=== PATIENT | female | born 1950 | race Caucasian/White ===

== ENCOUNTER 2023-06-16 09:00 | Outpatient (RCR) | payer MEDICARE, SELFPAY ==
--- NOTE | 2023-04-01 12:50 | PT.OPEX ---
PT [place] [facility] PT [facility] Outpatient Eval Start: 04/01/23 07:51 Freq: Status: Active Protocol: Document 04/01/23 07:52 ENM (Rec: 04/01/23 12:00 ENM [id number]) E-signed By Nola Puri DPT Physical Therapy Outpatient Evaluation Insurance Information Recert Due Date 06/24/23 Insurance Name Medicare B,[employer] Medical Diagnosis right ankle sprain sprain of unspecified ligament right ankle, initial encounter Treating Diagnosis right ankle pain, decreased ankle plantar flexion strength , decreased ankle inversion strength, impaired balance, ankle swelling Referring MD Wall Subjective Subjective Patient presents to PT for evaluation of right ankle sprain. She reports that she has had a swollen right ankle for months that has not gone away. She has tried icing, aleve and heat which doesn't seem to improve her symptoms. She states that she didn't do anything to injure it that she can think of. It hurts all the time but it doesn't stop her from doing anything. Hasn' t had any imaging of it. With doing the steps that can be more irritating. Walking is not as painful as just sitting towards the end of her day. Denies any numbness but can sometimes feel a bruised burning feeling. Denies any redness of the ankle or leg. Pain is in the front of the ankle and then towards medial malleoli. PMHx: R knee replacement Pain Comments at its worse: constant medium pain easing: none aggravating: sitting, standing more, steps Current Work Status Retired Objective Other/Pertinent Objective ROM: AROM DF L 7 deg R 7 deg in longsitting knee to wall- big toe to wall 7 inch on L, R 4.5 inch from wall PF L 58 R 59 + for anterior ankle pain when performing knee ROM L 126 knee flexion R 108 knee flexion strength: DF 5/5 B PF L 11 raises R 6 + for pain INV + for discomfort on R 4/5 L 5/5 , also painful with combination PF INV and DF INV EV 4+/5 B knee extensors 4/5 B hip abductors L glute weakness noted with SLS palpation/joint mobility posterior glide of talus pain free and hypomobile B + for pain palpating below medial malleoli and posterior tib tendon swelling/observation: figure 8 L 52.1 cm R 52.5 cm malleoli L 25.3 R 25.9 cm visible swelling along right bilateral malleoli gait/balance: SLS L able to hold 9-10s no difficulty R able to hold 2-3s with pain special tests: Arch testing 1 fingertip below the arch B, no excessive calcaneal eversion anterior drawer - for pain or hypermobility talar tilt + for slight discomfort on R side with eversion, no significant hypermobility Functional Test Performed & Score FAAM ADL: 60/84 71% Assessment Assessment/Impression Patient is a 72 year old female presenting with right ankle pain and swelling that has been present for months. They notice the most discomfort when sitting at the end of their day, going up the stairs and walking longer distances. They have tried aleve, icing and heat for symptoms but have had no relief to date. Upon assessment patients concordant pains brought on with heel raises, resisted ankle INV, end range plantar flexion and palpation of right inferior medial malloeli and posterior tibialis. Special testing - for increased laxity with talar tilt and anterior drawer, slight pain with eversion of calcaneus. SLS is poor on the right side. Swelling is localized to bilateral right malleoli measured at 0.5 cm different compared to contralateral side . Symptoms consistent with posterior tibial tendinopathy. Gladys would greatly benefit from skilled PT to address impairments stated above in order to perform all functional mobility and recreational activities without significant discomfort or difficulty for return to PLOF. Primary Functional Limitations stairs, walking more, sitting at the end of her day Plan of Care Rehabilitation Potential Good Physical Therapy Goals In 6-8 visits: 1. Patient will be IND with HEP and self management of symptoms 2. Patient will be able to rest at the end of her day with 2/10 or less ankle pain in order to comfortably sit for evening activities 3. Patient will be able to perform atleast 10 R single leg heel raises without pain for improved ability to perform stairs 4. Patient will be able to hold R SLS for atleast 5s without pain to demonstrate improvements in ankle stability and balance 5. Patient will participate in hiking with her daughters without increase in ankle swelling in order to progress toward prior level of activity Treatment Plan/Direct Interventions Gait Training,Ice/Cold/ Vasopneumatic,Joint Mobilization,Manual Therapy, Neuromuscular Re-ed,Self-Care/ Home Management,Therapeutic Activities,Therapeutic Exercises Frequency/Duration 1x for 7 weeks, as needed for 2-3 visits Patient Will Be Discharged From Therapy Completion of LTG(s), Independent w/HEP Evaluation Billing Untimed Code Treatment Minutes 33 Complexity Low Certification Information Initial Certification Date 04/01/23 Ending Certification Date 06/24/23 Provider Signature Shows Agreement With POC & Medical Necessity Physician Signature & Date Requested Please Sign/Date Here Physician Comment/Change : Physician NPI Number #
== END 2023-08-04 14:32 | disposition home or self-care (01) ==
PROVIDERS: PCP Internal Medicine; Visit Provider Internal Medicine
DX: S93.401D Sprain of unspecified ligament of right ankle, subsequent encounter (principal); Z51.89 Encounter for other specified aftercare
CPT/HCPCS: 97110; 97112; 97140; 97161

== ENCOUNTER 2023-08-31 13:45 | Outpatient (CLI) | payer MEDICARE, SELFPAY ==
--- NOTE | 2023-08-31 14:00 | CRLHL7_ITS ---
For Patients: As a result of the Century Cures Act, medical imaging exams and procedure reports are released immediately into your electronic medical record. You may view this report before your referring provider. If you have questions, please contact your health care provider. BILATERAL SCREENING MAMMOGRAM WITH COMPUTER-AIDED DETECTION TECHNIQUE: CC and MLO views were obtained. These mammographic images have been obtained using full-field digital technique. These mammographic images were interpreted with the benefit of computer-aided detection. COMPARISON FILM: 02/09/21, 08/28/18, 11/01/16. FINDINGS: There are scattered areas of fibroglandular density. IMPRESSION: There is no radiographic evidence for malignancy. ASSESSMENT: BI-RADS Category 1: Negative RECOMMENDATION: Routine screening mammogram in 1 year. A lay language report of this examination will be provided to the patient. MARCELO GONZALEZ M.D. Diagnostic Radiologist [email or web address] Transcribed: 09/01/2023, 6:[address]/Dictated by: Marcelo Gonzalez MD @ 09/01/2023 1:01:00 PM (Electronically Signed)
--- NOTE | 2023-08-31 14:30 | CRLHL7_ITS ---
For Patients: As a result of the Century Cures Act, medical imaging exams and procedure reports are released immediately into your electronic medical record. You may view this report before your referring provider. If you have questions, please contact your health care provider. DXA BONE MINERAL DENSITY STUDY Current height (in): 64.0. Weight (lb): 185.0. Menopause age: 47. Ethnicity: White. Reason for exam: Osteopenia. 1. Have you had a previous hip or vertebral fracture? No. 2. Have you had any fractures during your adult life which did not result from significant trauma (e.g., auto accident)? No. 3. Did either of your parents have a hip fracture? No. 4. Do you smoke? No. 5. Have you ever taken Glucocorticoids? No. 6. Do you have rheumatoid arthritis? No. 7. Do you have secondary osteoporosis? No. 8. Do you drink 3 or more alcoholic drinks per day? No. 9. Are you being treated for osteoporosis? No. 10. Have you ever taken any of the following medications: Actonel, Evista, Fosamax, Miacalcin, Reclast, Boniva, Forteo, HRT (i.e. estrogen/hormone therapy), Protelos, Prolia, Vitamin D, Calcium, other ??? please specify. ANSWER: Yes, calcium. 11. Do you have any of the following medical conditions: Anorexia or bulimia, asthma or emphysema, end stage renal disease, hyperparathyroidism, any seizure disorders, cancer, inflammatory bowel diseases, hysterectomy, other ??? please specify. ANSWER: No. 12. What was your maximum height (inches)? 65. 13. Do you perform weight bearing exercise regularly? No. 14. Do you regularly consume dairy products? Yes. 15. Do you drink caffeinated beverages? Yes. 16. At what age did your period start? 14. 17. Are you premenopausal? No. 18. How many full term pregnancies have you had? 3. 19. Have you ever missed your period for more than 6 months in a row (not including or menopause)? No. TECHNIQUE: Bone mineral density study was performed using the [email or web address]. FINDINGS: The results of the study expressed as bone mineral density (BMD) are as follows: Lumbar spine L1 to L4: BMD: 1.117 g/cm2. T-score: 0.6. Z-score: 2.8. Neck Left: BMD: 0.700 g/cm2. T-score: -1.3. Z-score: 0.5. Right: BMD: 0.677 g/cm2. T-score: -1.6. Z-score: 0.3. Total Left: BMD: 0.830 g/cm2. T-score: -0.9. Z-score: 0.6. Right: BMD: 0.827 g/cm2. T-score: -0.9. Z-score: 0.6. IMPRESSION: Osteopenia. *Comparison exams done prior to 04/2020 were performed on different unit, [employer] COMPARISON: Compared with scan of 10/06/2017, the bone mineral density has decreased by 4.1 percent at the spine and decreased by 4.7 percent at the hip. FRAX 10-year Fracture Risk Major Osteoporotic Fracture: 9.7 percent Hip Fracture: 1.4 percent Reported Risk Factors: [place] () Neck BMD = 0.677, BMI = 31.8 Marcelo Bucio M.D. Diagnostic Radiologist [email or web address] Transcribed: 9:02 am DW/Dictated by: Marcelo Bucio MD @ 09/01/2023 6:20:00 AM (Electronically Signed)
== END 2023-08-31 13:46 | disposition home or self-care (01) ==
PROVIDERS: PCP Internal Medicine; Visit Provider Internal Medicine
DX: Z12.31 Encounter for screening mammogram for malignant neoplasm of breast (principal); M85.851 Other specified disorders of bone density and structure, right thigh; M85.852 Other specified disorders of bone density and structure, left thigh
CPT/HCPCS: 77063; 77067; 77080

== ENCOUNTER 2024-11-19 09:42 | Outpatient (CLI) | payer MEDICARE, SELFPAY | END 2024-11-19 09:43 | disposition home or self-care (01) | PROVIDERS: PCP Internal Medicine; Visit Provider Internal Medicine | DX: M85.80 Other specified disorders of bone density and structure, unspecified site (principal) | CPT/HCPCS: 80048; 82306 ==

== ENCOUNTER 2025-02-06 10:12 | Outpatient (CLI) | payer MEDICARE, SELFPAY ==
--- NOTE | 2025-02-06 10:15 | CRLHL7_ITS ---
For Patients: As a result of the Century Cures Act, medical imaging exams and procedure reports are released immediately into your electronic medical record. You may view this report before your referring provider. If you have questions, please contact your health care provider. BILATERAL DIGITAL SCREENING MAMMOGRAM WITH COMPUTER-AIDED DETECTION AND TOMOSYNTHESIS CLINICAL HISTORY: Routine screening exam. COMPARISON: 08/31/23, 02/09/21, 08/28/18. TECHNIQUE: Digital mammogram in CC and MLO projections including computer-aided detection (CAD). Tomosynthesis was used in this interpretation. BREAST COMPOSITION: There are scattered areas of fibroglandular density. FINDINGS: RIGHT Breast: No suspicious findings. LEFT Breast: Focal asymmetric density within the retroareolar plane 5 cm from the nipple. IMPRESSION: LEFT breast asymmetry/mass. RECOMMENDATIONS: Additional mammographic views of the LEFT breast including 3D spot compression CC/MLO. LEFT breast ultrasound may also be required. The [facility] will contact the patient. A lay language report of this examination will be provided to the patient. BI-RADS Category 0: Incomplete: Need Additional Imaging Evaluation Dictated by Marcelo Bucio MD @ 02/06/2025 10:58:55 AM jj/Dictated by: Marcelo Bucio MD @ 02/06/2025 10:51:00 AM (Electronically Signed)
== END 2025-02-06 10:13 | disposition home or self-care (01) ==
LOC: MAMMO 10:12
PROVIDERS: PCP Internal Medicine; Visit Provider Internal Medicine
DX: Z12.31 Encounter for screening mammogram for malignant neoplasm of breast (principal); N63.20 Unspecified lump in the left breast, unspecified quadrant
CPT/HCPCS: 77063; 77067

== ENCOUNTER 2025-02-18 08:29 | Outpatient (CLI) | payer MEDICARE, SELFPAY ==
--- NOTE | 2025-02-18 08:45 | CRLHL7_ITS ---
For Patients: As a result of the Cures Act, medical imaging exams and procedure reports are released immediately into your electronic medical record. You may view this report before your referring provider. If you have questions, please contact your health care provider. DIGITAL DIAGNOSTIC LEFT MAMMOGRAM USING TOMOSYNTHESIS LEFT BREAST ULTRASOUND CLINICAL HISTORY: LEFT breast mass/asymmetry. COMPARISON: 02/06/2025. TECHNIQUE: Digital LEFT mammogram in two projections. Tomosynthesis was used in this interpretation. Real-time ultrasound imaging of LEFT breast with imaging documentation. Scanning was performed by both the technologist and the radiologist. BREAST COMPOSITION: There are scattered areas of fibroglandular density. FINDINGS: 3D spot compression CC/MLO LEFT breast mammogram images submitted. Decreased conspicuity of previously noted asymmetric density. No architectural distortion. No suspicious calcifications. Targeted LEFT breast ultrasound 12 o`clock 5 cm from the nipple performed. Normal fibroglandular tissue. No fibrocystic change or solid mass. IMPRESSION: No evidence of malignancy. RECOMMENDATIONS: Routine screening mammography. A lay language report of this examination will be provided to the patient. BI-RADS Category 2: Benign Dictated by Marcelo Bucio MD @ 02/18/2025 9:52:35 AM jj/Dictated by: Marcelo Bucio MD @ 02/18/2025 9:52:00 AM (Electronically Signed)
--- NOTE | 2025-02-18 09:15 | CRLHL7_ITS ---
For Patients: As a result of the Cures Act, medical imaging exams and procedure reports are released immediately into your electronic medical record. You may view this report before your referring provider. If you have questions, please contact your health care provider. SEE DIGITAL DIAGNOSTIC LEFT MAMMOGRAM PERFORMED SAME DAY CRL:femi kahn/Dictated by: Marcelo Bucio MD @ 02/18/2025 9:50:00 AM (Electronically Signed)
== END 2025-02-18 08:30 | disposition home or self-care (01) ==
LOC: MAMMO 08:29
PROVIDERS: PCP Internal Medicine; Visit Provider Internal Medicine
DX: R92.8 Other abnormal and inconclusive findings on diagnostic imaging of breast (principal); N63.20 Unspecified lump in the left breast, unspecified quadrant
CPT/HCPCS: 76642; 77065; G0279